=== PATIENT | male | born 1975 | race Caucasian/White ===

== ENCOUNTER 2016-12-31 13:58 | Emergency (ER) | payer MEDICAID, OTHER ==
--- NOTE | 2016-12-31 14:25 | ERNOTE ---
Psychological HPI - General Chief Complaint: Drug Overdose Source: Reports: patient Exam Limitations: Reports: no limitations - Immun/Allergies/Home Medications Allergies/Adverse Reactions: Allergies Penicillins Allergy (Verified 12/31/16 14:04) Home Medications: HOME MEDICATIONS Ibuprofen [Motrin] 600 mg PO QID PRN 02/15/13 [Last Taken 02/15/13 00:00] ALPRAZolam [Xanax] 1 mg PO QID PRN 05/02/14 [Last Taken Unknown] traZODone HCL [Trazodone HCl] 100 mg PO HS 12/31/16 [Last Taken Unknown] - History of Present Illness Narrative: Patient admits to taking 6 trazodone, 3 xanax 2mg and half a bottle of vodka around 11:00 as he 'just wanted to sleep'. He denies wanting to or wanting to hurt himself. The event was triggered by conflict with his . He initially refused to come and was handcuffed by law enforcement, has been cooperative since. When asked whether he ever had thoughts of hurting himself before he states: ' when I first saw my face without skin on'. He was treated for necrotizing fasciitis three years ago and has had extensive surgeries and skin transplant since. No inpatient psychiatric treatment since he was a young child. He took himself off his gabapentin and antidepressant medication three weeks ago as he did not want to be on so many medications. He sees Evelin Snell for his depression. He has chronic pain in his face, rates the pain at 7/10 which is his baseline, takes only ibuprofen, is off all narcotics. He does not drink ETOH on a regular basis, last drink before today was a month ago Time Seen by Provider: 12/31/16 13:58 Date (Duration): 12/31/16 Time (Timing): 11:00 Arrived by: Reports: police Review of Systems - Review of Systems Constitutional: Absent: recent illness EYE: Absent: vision changes ENT: Absent: nasal drainage, sore throat Respiratory: Absent: shortness of breath, cough Cardiology: Absent: chest pain Gastrointestinal/Abdominal: Absent: nausea, vomiting, abdominal pain Genitourinary: Present: no symptoms reported Skin: Present: See HPI Neurological: Present: See HPI - Patient's Past Medical History Patient History - Medical: Chronic Pain, Depression, Other Patient History - Cardiac/Respiratory: Hypertension Patient History - Cancer: No Hx of Cancer Patient History - Surgical Procedures: Other - Social History Living Situations: home Smoking Status: Current every day smoker Have you smoked in the past 12 months: Yes Alcohol Use: occasionally Drug Use: marijuana Physical Exam - Physical Exam General Appearance: Present: wd/wn, alert, no apparent distress Eye Exam: Normal inspection: bilateral, PERRL: bilateral Ears, Nose, Throat: Present: other - extensive reconstructive surgeries and skin transplant on left side of face, left ear absent Respiratory: Present: no respiratory distress, normal breath sounds, no accessory muscle use, lungs clear Cardiovascular/Chest: Present: regular rate, rhythm, no murmur Gastrointestinal/Abdominal: Present: nontender, nondistended, soft, other - left abdomen superficial skin wound (from harvest side for transplant?) with small amount of drainage Extremity Exam: Present: normal inspection Neurological Exam: Present: alert, oriented, normal mood/affect Skin Exam: Present: normal color, warm/dry ED Progress - Results and Orders Patient's Lab Results:: I have reviewed the patient's lab results. - Vital Signs Patient's Vital Signs:: I have reviewed the patient's vital signs. Vital Signs: Vital Signs 12/31/16 12/31/16 13:58 14:08 Temperature 36.3 C L Pulse Rate 103 H 103 H Respiratory 12 Rate Blood Pressure 141/85 O2 Sat by Pulse 95 Oximetry - EKG EKG: NSR, unchanged from - 11/2014 , other - moderte intraventricular conduction delay EKG read: Interp. by me - Progress/Reassessment Chief Complaint: Drug Overdose Progress Note-Subjective: 12/31/16 14:10 patient initially refused testing, explained that if he is cooperative and agrees to testing and short observation, he might be able to get discharged in the near future. If he is uncooperative and I am not able to medically clear him he might have to be put on a 48hour hold through the social insurance administrator and end up staying much longer. Patient agrees to to testing 12/31/16 15:12 long discussion with dad about patient,Patient has made multiple threat of hurting himself in the past, has a very short fuse, usually makes bad choices when he drinks ETOH or does drugs. He got into an argument with his mother this morning, started to drink and then decided that that was a poor choice and took trazodone and extra xanax to sleep it off instead. The youngest daughter was at the house and he took the medications around 11:30 12/31/16 15:13 discussed with Evelin Snell was on effexor 225mg, last seen in the office September 2015, has been seen outside office and has his medications refilled, is binge drinker, behavior problems usually when drinking, has missed last appointment but has one scheduled for January 09 at 10:30 12/31/16 15:43 patient alert, oriented and cooperative, discussed test results and plan is to watch him here till 17:30. At that point it will be about six hours since ingestion patient again denies any suicidal ideation, states: 'I have 100mcg fentanyl at home. If I wanted to do it I would get the job done' 12/31/16 17:26 patient requesting to be discharged, denies any suicidal ideation, daughter will drive, patient alert and oriented Departure Clinical Impression: ETOH abuse Depression Qualifiers: Depression Type: major depressive disorder Major depression recurrence: recurrent Active/Remission status: remission status unspecified Qualified Code(s ): F33.9 - Major depressive disorder, recurrent, unspecified - Departure Disposition: Home self-care Instructions: Alcohol Intoxication, [id number] Additional Instructions: follow up with Evelin Snell as scheduled consider getting counselling Referrals: Iggy Montes MD [Primary Care Provider] - Channing,ITZEL Patterson [Allied Health] - 01/09/17 10:30 am
--- OUTSIDE RECORDS SUMMARY | 2016-12-31 14:34 | XMS REPORT | Continuity of Care Document ---
:1975 Author Organization [facility] ([facility]) Address [address] [place] [address] Phone [phone] Care Team Providers Name Role Phone Tremayne Montesy Primary Care Provider [phone] Source Comments This disclosure is being made pursuant to the Care Everywhere program, applicable federal and state laws, and may not contain all informaitonavailable regarding this patient.[facility] ([facility]) Active Allergies and Adverse Reactions No Known Allergies Current Medications Prescription Sig. Disp. Refills Start Date End Date Status venlafaxine (EFFEXOR Take 150 mg by Active XR) 150 mg XR mouth daily. capsule LOTREL 5-20 mg cap 2 01/18/2015 Active per capsule ALPRAZOLAM 1 mg 1 mg 2 times 0 05/16/2015 Active tablet daily TRAZODONE 100 mg 100 mg 1 05/15/2015 Active tablet gabapentin 300 mg Take 1 capsule 90 capsule 5 08/17/2016 Active capsule (300 mg total) by mouth 3 times daily. ibuprofen 600 mg Take 1 tablet 200 tablet 11 09/17/2016 Active tablet (600 mg total) by mouth every 6 hours as needed for Pain. trimethoprim-polymyx Instill 1 Drop 10 mL 2 10/10/2016 Active in b ophthalmic onto the left solution eye 3 times daily. artificial tears 1 Drop 3 times Active (GENTEAL MILD TO daily as needed. MODERATE) 0.3 % ophthalmic solution erythromycin 0.5 % Instill onto the 3.5 g 1 11/25/2016 Active ophthalmic ointment left eye 3 times daily. HYDROcodone-acetamin Take 1 tablet by 15 tablet 0 11/25/2016 Active ophen 5-325 mg per mouth every 6 tablet hours as needed for pain. bacitracin 500 every 4 hours. 3.5 g 0 11/25/2016 Active unit/g ophthalmic Apply a thin ointment ribbon to affected eye(s). venlafaxine 75 mg XR TK 1 C PO ONCE 5 11/15/2016 Active capsule DAILY WITH A 150 MG C FOR A TOTAL OF 225 MG QD erythromycin 0.5 % Apply 1/2 inch 7 g 0 11/25/2016 12/02/2016 ophthalmic ointment to incision 3 times daily for 7 days. doxycycline Take 1 capsule 20 capsule 0 11/25/2016 12/05/2016 monohydrate 100 mg (100 mg total) capsule by mouth 2 times daily for 10 days. 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 Shreyas Ji , referral from [facility] [phone] Pamela Souza 03/01/2013 hepatitis C RNA 3.88 logIU. Other studies done 02/23/2013 hepatitis B IgM nonreactive hepatitis B surface antigen nonreactive hepatitis B core antibody nonreactive hepatitis C antibody reactive 02/22/13 CBC, WBC 6.8 hemoglobin 18.0 hematocrit 50.9 MCV 94.5 platelets 188 BUN 10 creatinine 1.1 sodium 137 potassium 4.5 calcium 8.9 total protein 8.6 albumin 3.6 bilirubin 0.3 ALT 515 (19-67) AST 307 (0-48) alkaline phosphatase [address] 02/15/2013: Scattered granulomas in the lower lung garzon liver spleen gallbladder and adrenals and kidneys within normal limits normal appendix nonspecific inflammation right lower quadrant suggestive of a mental infarction 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 Family history cancer in a maternal grandfather and grandmother, heart disease maternal grand father and grandmother, hypertension father and maternal grandfather stroke in paternal grandfather and grandmother Hypertension 08/19/2013 Obesity (BMI 30-39.9) 08/19/2013 Metabolic syndrome X 08/19/2013 Resolved Problems Problem Noted Date Resolved Date Open wound of face 12/08/2014 12/10/2014 Encounter for removal of ruptured tissue sanding supervisor of scalp, 11/07/20142014 replacement with new tissue expanders Wound dehiscence 10/18/2014 11/09/2014 Overview: Exposed tissue sanding supervisor, concern for infection Altered mental status 08/09/2014 12/10/2014 Hypophosphatemia 05/05/2014 11/07/2014 Left orbital abscess 05/04/2014 12/10/2014 Facial trauma 05/04/2014 12/10/2014 Necrotizing fasciitis 05/04/2014 12/10/2014 Overview: Formatting of this note may be different from the original. He had history of poor dental hygiene, Hep C with hx of IVDA, heavy alcohol abuse and smoking prior to the episode. Admitted May 03-Jun 03, 2014 for Necrotizing fascitis of left periorbital and facial region. 05/03/14 Few Streptococcus pyogenes (A) Rare Staphylococcus epidermidis (A) - concern for shingles on right forehead 05/30/14 treated with acyclovir, However viral PCR was negative. He was discharged on augmentin 500/125 mg TID for 7 days. Readmission Jul 2014 for a day after reconstruction including an anterolateral thigh free flap, full-thickness skin grafting for the neck, full-thickness skin grafting to the upper and lower eyelids,and a tarsorrhaphy for protection Prior Allergy-Immunology Evaluations and Therapy: Apr 2014: At admission: CBC with diff: WBC=20.1, GBS=45075, Mkyjj=0404 Last CBC with diff during admission: WBC=6.1, Hb 10.6, plt=99, UFW=8014, Lymph= 1314, Plasma cells, promyelocytes and myelocytes=57 (elevated) DrB=535, SxY=4664, KhZ=283 CBC with diff: elevated white count with left shift at admission, resolved by discharge. Xoecg=3152 on 05/03/14, 05/06/14=790, 05/09/14: 1314 Flow cytometry 05/06/14: decreased absolute lymphocyte count(790) ,slightly increased CD4:CD8 ratio (2.8), relatively and absolutely decreased natural killer cells, and no significant quantitative alteration in the B-lymphocytes Urinalysis: WNL Random Pneumococcal titers: 23/23 protective titers after PVX-23 in January 2013. NK fresh and enhanced assay below normal in setting of acute infection. DHR: WNL - He got Immunomodulatory dose IVIG 1g/kg 05/06/14 and 0.5g/kg 05/07-05/08/14. ED visit Jul 2014 prior to reconstruction for fever. Declined admission. - Readmission Jul 2014 for a day after reconstruction including an anterolateral thigh free flap, full-thickness skin grafting for the neck, full- thickness skin grafting to the upper and lower eyelids, and a tarsorrhaphy for protection Apr 2014: At admission: CBC with diff: WBC=20.1, BLC=39072, Yvcte=5844 Discharge CBC with diff: WBC=6.1, Hb 10.6, plt=99, BCK=8612, Dwfkt=0083, Plasma cells, promyelocytes and myelocytes=57 (elevated) KiK=506, ZqK=5862, ObO=463 CBC with diff: elevated white count with left shift at admission, resolved by discharge. Tsttc=4027 on 05/03/14, 05/06/14=790, 05/09/14: 1314 Flow cytometry 05/06/14: decreased absolute lymphocyte count(790) ,slightly increased CD4:CD8 ratio (2.8), relatively and absolutely decreased natural killer cells, and no significant quantitative alteration in the B-lymphocytes Urinalysis: WNL Random Pneumococcal titers: 23/23 protective titers after PVX-23 in January 2013. NK fresh and enhanced assay below normal in setting of acute infection. DHR: WNL - He got Immunomodulatory dose IVIG 1g/kg 05/06/14 and 0.5g/kg 05/07-05/08/14. Elevated LFTs 05/04/2014 11/07/2014 DONNELL (acute kidney injury) 05/04/2014 11/07/2014 Thrombocytopenia 05/04/2014 12/10/2014 Acute blood loss anemia 05/04/2014 12/10/2014 Hypomagnesemia 05/04/2014 05/28/2014 Overview: Mag noted to be low on 05/04/2014 and replaced. Will trend daily and replace further as indicated. Electrolyte imbalance 05/04/2014 05/28/2014 Overview: Low mag and sodium noted and replaced. Will trend daily and replete further as indicated. Cellulitis 05/03/2014 05/28/2014 Overview: To left face, s/p I&D on 05/04/2014. Orbital floor fracture 05/03/2014 12/10/2014 Hyposmolality and/or hyponatremia 05/03/2014 05/28/2014 Overview: Hyponatremia noted on admission. Trending sodium and gradually correcting. Leukocytosis 05/03/2014 05/28/2014 Overview: Likely related to left orbit/face nec fasc. If febrile will judge culture. Most Recent Encounters Date Type Specialty Providers Description 12/24/2016 Office Visit Ophthalmology Marian Macdonald, Subj: Upcoming Specialty MD Appt Reminder 12/03/2016 Office Visit Ophthalmology Marian Macdonald, Dx: Exposure Specialty MD ruiz, left (Primary Dx) 11/29/2016 Telephone Ophthalmology Antonia Baron Specialty 11/26/2016 Nurse Triage Ambulatory Surgery Viviana Carr RN Chief Comp: Post-op Follow-up Call 11/25/2016 Hospital Encounter Ambulatory Surgery Marian Edgar Dx: Upper eyelid retraction of left eye (Primary Dx) 11/25/2016 Pharmacy Visit 11/25/2016 Surgery Ambulatory Surgery Marian Edgar LID RETRACTION REPAIR W/WO EXTIRPATION MUELLERS 11/22/2016 Anesthesia Event Ambulatory Surgery Matthieu Stallings CRNA 11/12/2016 Office Visit Ophthalmology Marian Macdonald, Subj: Upcoming Specialty Appt Reminder 10/31/2016 Office Visit Marian Rich, Dx: Exposure Specialty MD ruiz left (Primary Dx) 10/31/2016 Office Visit Marian Rich, Subj: Appointment Specialty Canceled 10/25/2016 Telephone Antonia Valencia Specialty 10/22/2016 Office Visit Marian Rich, Subj: Appointment Specialty MD Scheduled 10/17/2016 Office Visit Ophthalmology Marian Macdonald, Dx: Exposure Specialty MD ruiz, left (Primary Dx) 10/15/2016 Office Visit Ophthalmology - Marian Edgar, Subj: Appointment Specialty MD Rescheduled 10/12/2016 Telephone Ophthalmology - Miya Driscoll Chief Comp: Specialty MD Ayleen Patient Concern 10/10/2016 Orders/Notes Ophthalmology - Anni, Dx: Corneal Specialty Aniyah Dasilva MD epithelial defect (Primary Dx) Immunizations Name Dates Previously Given Next Due Influenza, unspecified 05/28/2014 Pneumococcal, unspecified 02/17/2013 Tetanus Toxoid, unspecified 02/17/2013 Social History Tobacco Use Types Packs/Day Years Used Date Current Every Day Smoker Cigarettes 1 20 Smokeless Tobacco: Never Used Quit: 08/09/2014 Tobacco Cessation:Ready to Quit: No; Counseling Given: No Comments:provided tobacco cessatioin and behavorial counseling. Patient is motivated to quit smoking. Alcohol Use Drinks/Week oz/Week Comments No sober for 13 weeks 05/03/14 Last Filed Vital Signs Vital Sign Reading Time Taken Blood Pressure 128/72 11/25/2016 11:15 AM CDT Pulse 79 11/25/2016 7:01 AM CDT Temperature 36.8 C (98.2 F) 11/25/2016 10:48 AM CDT Respiratory Rate 18 11/25/2016 10:48 AM CDT Height 1.778 m (5' 10") 09/26/2016 5:50 PM FRANCHISE BROKER Weight 104.2 kg (229 lb 11.5 oz) 11/25/2016 7:01 AM CDT Body Mass Index 32.96 11/25/2016 7:01 AM CDT Oxygen Saturation 97% 11/25/2016 11:15 AM CDT Plan of Care Health Maintenance Due Date Last Done Comments Hepatitis B Vaccine (1 of 3 - Primary Series) 1975 Tdap Vaccine 1986 Lipid Disorder Screening 1993 MMR Vaccine 1993 Pneumococcal Vaccine (1 of 1 - PPSV23) 1994 Influenza Vaccine: Seasonal (Season Ended) 2017 05/28/2014 Td Vaccine 02/17/2023 02/17/2013 Procedures from Last 3 Months Procedure Name Priority Date/Time Associated Comments Diagnosis ABSTRACTED BY BILLING Routine 11/27/2016 4:03 Upper eyelid Results for this STAFF PM CDT retraction of left procedure are in eye the results section. LID RETRACTION REPAIR 11/25/2016 8:00 Upper eyelid W/WO EXTIRPATION AM CDT retraction of left MUELLERS eye Case Notes release of scar with placement of skin graft left upper lid Results from Last 3 Months EYE OR CASE (11/27/2016 4:03 PM) Marian Carter MD 11/27/20164:03 PM Ophthalmology Post-op Procedure Note Surgical Service:Ophthalmology & Visual Sciences Date Performed:11/25/16 Time:0800 Length:2 Hr 35 Min 42 Sec Location:[facility] Room:[facility] 1 Log ID:[id number] Pre-operative Diagnosis:Upper eyelid retraction of left eye with lash ptosis and marginal entropion Post-operative Diagnosis:Upper eyelid retraction of left eye with lash ptosis and marginal entropion Operative Procedure: 1. Release of Cicatrix, left upper eyelid 2. Levator recession, left upper eyelid 3. Eyelid retraction repair with Full thickness skin graft (Right abdominal skin to Left upper eyelid) 4. Anterior lamellar rotation, left upper eyelid with sutures to correct marginal entropion 5. Injection of triamcinolone in area of cicatrix in upper lid Surgeon(s): Surgeon(s) and Role: * Marian Edgar MD - Primary * Aniyah Hutton MD - Fellow Staff Information: Scrub Nurse: Ivy Devlin RN; Luz Roland RN Circulating Nurse: Gemma Farah, ALEXUS; Regi Ca RN Anesthesia: Monitored Anesthesia Care Findings: No Unusual Findings Blood Loss:Minimal Implants: * No implants in log * Specimens: * No specimens in log * Complications:The patient did not experience any complications. Condition:Stable Operative Report Completion: Description of Operation/Procedure: The patient was brought to the operating room where MAC anesthesia was induced without complication. A "time out" was performed to ensure the correct surgical site. Local anesthetic consisting of lidocaine, epinephrine, and bupivacaine was injected into the left upper eyelid, along with the right lateral abdominal region. The patient was prepped and draped in the usual sterile fashion. An upper lid crease incision was marked with a marking pen. The upper eyelid crease was incised using a 15 blade. Hemostasis was achieved with bipolar cautery throughout the case as needed. Dissection was carried superiorly towards the superior orbital rim, and inferiorly towards the lid margin, in the subcutaneous plane to release all cicatricial tension. Careful excision of cicatricial tissue was performed using Meera scissors to thin the eyelid skin. The lateral portion of the levator muscle was then released from the tarsal plate using Meera scissors to appropriately recess the muscle. Attention was then turned to performing the anterior lamellar rotation. Interrupted 7-0 vicryl sutures were passed through the skin and orbicularis, then anchored in a lamellar fashion to the tarsus, and then passed out the orbicularis and skin and tied. This rotated the anterior lamella and secured its relationship to the tarsus. Once the cicatrix was adequately released as noted above, the dimensions of the defect were measured. An appropriately sized skin graft was then harvested from the right lateral abdominal wall. The skin graft was thinned using Meera scissors to excise unneeded subcutaneous tissue. The graft was then posited in the left upper lid and secured into position using interrupted 7-0 Vicryl suture. Several venting incisions were made in the graft to prevent hematoma formation. The graft harvest site was closed with 4-0 Vicryl suture in the deep layer, and a running 5-0 prolene suture to close the cutaneous layer. Triamcinolone 0.5ml was injected into the area of the cicatrix in the upper lid.Care was taken to ensure it did not pool under the skin graft. Erythromycin ophthalmic ointment was placed over the incisions and graft site. A bolster dressing consisting of Telfa and a dental roll was secured to the upper lid graft using interrupted 4-0 silk suture. The left eye was then covered with a pressure patch. The harvest site was dressed with 4 x 4 gauze and Tegaderm. The face was washed with a wet 4x4 gauze. The patient tolerated the procedure well and left the operating room in stable condition. Attending Attestation: I was present for the entire procedure. Marian Edgar MD
[2016-12-31 14:40] LABS: Hematocrit 43.6 % (42.0-52.0); Hemoglobin 15.7 gm/dL (13.5-18.0); Mean Cell Volume 86.3 fl (78-100); Mean Corpuscular Hemoglobin 31.1 pg (27-31); Mean Platelet Volume 9.6 fl (6.0-9.5); Neutrophil # 4.5 K/mm3 (1.3-6.0); Neutrophil % 49.5 % (42-75.0); Platelet Count 201 K/mm3 (150-450); Red Blood Count 5.05 M/mm3 (4.7-6.0)
[2016-12-31 14:42] LABS: Urine Bilirubin Negative (NEGATIVE); Urine Blood Negative /ul (NEGATIVE); Urine Ketone Negative (NEGATIVE); Urine Nitrite Negative (NEGATIVE); Urine Protein Negative (NEGATIVE); Urine Specific Gravity <=1.005 SP.GR. (1.005-1.030); Urine Urobilinogen Normal (NORMAL)
[2016-12-31 14:49] LABS: Urine Appearance Clear; Urine Bacteria None Seen; Urine Color Yellow; Urine RBC None Seen /hpf (0-5); Urine WBC None Seen /hpf (0-5)
[2016-12-31 14:55] LABS: ALT 57 U/L (19-67); AST 39 U/L (0-48); Albumin * 3.9 gm/dl (3.4-5.0); Alkaline Phosphatase * 34 U/L (50-170); Anion Gap 15.2 mmol/L (6.8-13.8); BUN/Creatinine Ratio 8.1 (9.0-21.6); Bilirubin, Total 0.2 mg/dL (0.0-1.1); Blood Urea Nitrogen 7 mg/dL (6-23); Ca. Corrected For Albumin 9.1 mg/dL (8.4-10.2); Calcium * 9.3 mg/dL (7.9-10.9); Carbon Dioxide 27.2 mmol/L (24-32.6); Chloride 107 mmol/L (97-106); Glucose * 122 mg/dL (70-110); Potassium 3.4 mmol/L (3.4-4.6); Salicylate 3.9 mg/dL (2.8-20.0); Sodium 146 mmol/L (132-142); Total Protein 8.3 gm/dL (6.2-8.2)
[2016-12-31 14:59] LABS: Cocaine Ur Negative (NEGATIVE); Urine Barbiturate Negative (NEGATIVE); Urine Opiates Negative (NEGATIVE); Urine PCP Negative (NEGATIVE)
[2016-12-31 15:00] LABS: Urine Benzodiazepines Positive (NEGATIVE); Urine THC Positive (NEGATIVE)
[2016-12-31 17:40] VITALS: BP 136/84
== END 2016-12-31 17:27 | disposition home or self-care (01) ==
LOC: ER 13:58
DX: F10.10 Alcohol abuse, uncomplicated (principal); F33.9 Major depressive disorder, recurrent, unspecified; F17.200 Nicotine dependence, unspecified, uncomplicated
CPT/HCPCS: 36415; 80053; 80307; 81001; 85025; 93005; 99282; G0480; G0481